=== PATIENT | female | born 1960 | race Caucasian/White ===

== ENCOUNTER → 2016-11-13 | Outpatient (CLI) | payer OTHER, MEDICARE ==
[~2016-11-13] MED LIST: ALENDRONATE SOD70 MG PO; AMBIEN10 M1 PO; ASPIRIN CHEWABL81 MG PO; ATIVAN0.5 MG PO; COUMADIN5 M2 PO; Carafate1 GM PO; DOXYCYCLINE HY100 M3 PO; ERYTHROMYCIN OPH1 GM OPH; ETODOLAC400 MG PO; GABAPENTIN300 MG PO; GABAPENTIN600 MG PO; K-Dur 20MEQ20 MEQ PO; KEFLEX500 MG PO; LASIX20 MG PO; LOPRESSOR50 M1 PO; LORAZEPAM1 MG PO; Lopressor25 MG PO; MOBIC15 MG PO; MOTRIN800 MG PO; NAPROSYN500 MG PO; NEURONTIN300 MG PO; NKHM; PACERONE100 MG PO; PAROXETINE HCL20 MG PO; PEPTIC REL262 MG/15 PO; PROTONIX40 MG PO; SEROQUEL25 MG PO; TYLENOL W/CODEI1 TA2 PO; VICODIN 5/500 505 MG PO; ZANAFLEX4 MG PO; ZOFRAN ODT4 MG PO
[2016-11-13 18:56] LABS: INTERNATIONAL NORM RATIO 1.2 (2.0-3.5); PROTHROMBIN TIME 12.6 SECONDS (9.0-12.4)
== END | disposition home or self-care (01) ==
LOC: LAB 11-12 14:25
DX: I35.0 Nonrheumatic aortic (valve) stenosis (principal); I48.91 Unspecified atrial fibrillation

== ENCOUNTER → 2016-12-05 | Outpatient (CLI) | payer OTHER, MEDICARE | END | disposition home or self-care (01) | LOC: RAD 16:47 | DX: M79.645 Pain in left finger(s) (principal) ==

== ENCOUNTER → 2016-12-06 | Outpatient (CLI) | payer OTHER, MEDICARE ==
[2016-12-06 11:38] LABS: INTERNATIONAL NORM RATIO 2.1 (2.0-3.5); PROTHROMBIN TIME 23.3 SECONDS (9.0-12.4)
== END | disposition home or self-care (01) ==
LOC: LAB 02:12
PROVIDERS: Internal Medicine Cardiovascular Disease
DX: I48.91 Unspecified atrial fibrillation (principal); I35.0 Nonrheumatic aortic (valve) stenosis

== ENCOUNTER → 2017-02-14 | Outpatient (CLI) | payer OTHER, MEDICARE ==
[2017-02-14 12:39] LABS: INTERNATIONAL NORM RATIO 1.7 (2.0-3.5); PROTHROMBIN TIME 18.7 SECONDS (9.0-12.4)
== END | disposition home or self-care (01) ==
LOC: LAB 11:36
DX: I35.0 Nonrheumatic aortic (valve) stenosis (principal); I48.91 Unspecified atrial fibrillation

== ENCOUNTER → 2017-04-09 | Outpatient (CLI) | payer OTHER, MEDICARE ==
[2017-04-09 16:02] LABS: INTERNATIONAL NORM RATIO 1.5 (2.0-3.5); PROTHROMBIN TIME 16.1 SECONDS (9.0-12.4)
== END | disposition home or self-care (01) ==
LOC: LAB 14:56
DX: I48.91 Unspecified atrial fibrillation (principal); I35.0 Nonrheumatic aortic (valve) stenosis

== ENCOUNTER → 2017-05-28 | Outpatient (CLI) | payer OTHER, MEDICARE ==
[2017-05-28 13:22] LABS: PROTHROMBIN TIME 68.3 SECONDS (9.0-12.4)
[2017-05-28 13:26] LABS: INTERNATIONAL NORM RATIO 5.8 (2.0-3.5)
== END | disposition home or self-care (01) ==
LOC: LAB 12:12
PROVIDERS: Internal Medicine Cardiovascular Disease
DX: I35.0 Nonrheumatic aortic (valve) stenosis (principal); Z79.01 Long term (current) use of anticoagulants

== ENCOUNTER → 2017-06-16 | Outpatient (CLI) | payer OTHER, MEDICARE ==
[2017-06-16 18:17] LABS: INTERNATIONAL NORM RATIO 2.2 (2.0-3.5); PROTHROMBIN TIME 24.6 SECONDS (9.0-12.4)
== END | disposition home or self-care (01) ==
LOC: LAB 17:20
PROVIDERS: Internal Medicine Cardiovascular Disease
DX: I35.0 Nonrheumatic aortic (valve) stenosis (principal); Z79.01 Long term (current) use of anticoagulants

== ENCOUNTER → 2017-07-16 | Outpatient (CLI) | payer OTHER, MEDICARE ==
[2017-07-16 08:57] LABS: INTERNATIONAL NORM RATIO 2.1 (2.0-3.5)
== END | disposition home or self-care (01) ==
LOC: LAB 07:58
PROVIDERS: Internal Medicine Cardiovascular Disease
DX: I35.0 Nonrheumatic aortic (valve) stenosis (principal); Z79.01 Long term (current) use of anticoagulants

== ENCOUNTER → 2017-10-07 | Outpatient (CLI) | payer OTHER, MEDICARE ==
[2017-10-07 11:37] LABS: INTERNATIONAL NORM RATIO 3.2 (2.0-3.5)
== END | disposition home or self-care (01) ==
LOC: LAB 10:51
PROVIDERS: Internal Medicine Cardiovascular Disease
DX: I35.0 Nonrheumatic aortic (valve) stenosis (principal); Z79.01 Long term (current) use of anticoagulants

== ENCOUNTER 2017-10-27 11:07 | Inpatient (IN) | payer OTHER, MEDICARE ==
[~2017-10-27] VITALS: Ht 162.5 cm; Wt 92.3 kg
--- NOTE | ~2017-10-27 | EKG ---
[place], [place] ELECTROCARDIOGRAM REPORT NAME: ROMMEL CLAROS UNIT #: [id number] ROOM: 406 DOCTOR: MIREYA GALE [facility],[place] BIRTHDATE: [birth year] DOS: 10/27/2017 TIME: 17:33 CONCLUSION: 1. Sinus rhythm. 2. Left axis. 3. Left anterior hemiblock, nonspecific ST changes. [place] GOMES MD CM:EKGRPT:ELECTROCARDIOGRAM REPORT [id number] [place] GOMES MD [facility]
--- NOTE | ~2017-10-27 | CON ---
[place], [place] REPORT OF CONSULTATION [id number] UNIT #: [id number] ROOM: 406 DOCTOR: MIREYA GALE [facility],[place] BIRTHDATE: [birth year] DOS: 10/28/2017 CARDIOLOGY CONSULTATION HISTORY OF PRESENT ILLNESS: The patient came in with a history of preconscious, no fatigue and tiredness. The patient had history of near syncope, history of hypertension, and paroxysmal atrial fibrillation. At present, the patient has sinus. The patient has aortic valve replacement in 09/2016. The patient has a history of cervical cancer and anxiety. Quit smoking several years ago. The patient has coronary artery disease and initial enzymes are unremarkable. Hemoglobin is 11.8 and creatinine is 1.1. The patient is on amiodarone 100 mg daily to keep in sinus rhythm, baby aspirin, metoprolol succinate 25 mg twice a day, and warfarin therapy for paroxysmal atrial fibrillation and also aortic valve replacement. PHYSICAL EXAMINATION: VITAL SIGNS: Stable. GENERAL: Alert, not in any acute distress. NECK: No jugular venous distention. No carotid bruits. SKIN: Warm and dry, not diaphoretic. Color is good, not diaphoretic. No cyanosis. HEART: S1, S2 regular. No gallops. LUNGS: No rales heard. ABDOMEN: Soft. RECTAL, GENITAL, AND BREAST EXAM: Deferred unrelated. PLAN: The patient will undergo Lexiscan Cardiolite evaluated for ischemic heart disease. If it is abnormal, we may consider further evaluation. If not, we will optimize the medical therapy. EKG, no acute changes noted. Myocardial perfusion scan is pending. Thank you very much for asking me to see the patient. I will follow the patient. [place] GOMES MD CM:CONSTR:REPORT OF CONSULTATION 0650 10/28/17 0848 interface
--- NOTE | ~2017-10-27 | ST ---
[place], [place] EXERCISE STRESS TEST REPORT [id number] UNIT #: [id number] ROOM: 406 DOCTOR: MIREYA GALE [facility],[place] BIRTHDATE: [birth year] DOS: 10/28/2017 The patient received Lexiscan 0.4 mg over 10 seconds. Heart rate is 83, no ischemic changes in EKG. The patient is not feeling well because of the shortness of breath and developed some dizziness, but blood pressure is stable and blood pressure is 138/76. Myocardial perfusion scan to follow. [place] GOMES MD CM:STRESS:EXERCISE STRESS TEST REPORT [id number] [place] GOMES MD [facility]
--- NOTE | ~2017-10-27 | EKG ---
[place], [place] ELECTROCARDIOGRAM REPORT NAME: ROMMEL CLAROS UNIT #: [id number] ROOM: 406 DOCTOR: MIREYA GALE [facility],[place] BIRTHDATE: [birth year] DOS: 10/27/2017 TRACING TIME: 11:19 CONCLUSION: 1. Sinus rhythm. 2. Left anterior hemiblock, nonspecific ST changes. [place] GOMES MD CM:EKGRPT:ELECTROCARDIOGRAM REPORT [id number] [place] GOMES MD [facility]
--- NOTE | ~2017-10-27 | ST ---
[place], [place] EXERCISE STRESS TEST REPORT NAME: [id number] UNIT #: [id number] ROOM: 406 DOCTOR: MIREYA GALE [facility],[place] BIRTHDATE: [birth year] DOS: 10/28/2017 LEXISCAN WITH CARDIOLITE The patient received Lexiscan 0.4 mg over 10 seconds and systolic ejection fraction is normal, greater than 70%. Isotope was injected and also injected the Lexiscan 0.4 mg over 10 seconds prior to this. There is evidence of abdominal perfusion and ____ is normal. Systolic ejection fraction of left heart is greater than 70%. No transient ischemic dilatation are noted. SUMMARY: ____. There is evidence of reversible ischemia involving and since there is reversible ischemia in the anterior apical segment of the lateral wall, may consider further evaluation ____ underlying coronary artery disease. [place] GOMES MD CM:STRESS:EXERCISE STRESS TEST REPORT [id number] [place] GOMES MD [facility]
--- NOTE | ~2017-10-27 | EKG ---
[place], [place] ELECTROCARDIOGRAM REPORT NAME: ROMMEL CLAROS UNIT #: [id number] ROOM: 406 DOCTOR: MIREYA GALE [facility],[place] BIRTHDATE: [birth year] DOS: 10/27/2017 TRACING TIME: 15:11 CONCLUSION: 1. Sinus rhythm. 2. Left anterior hemiblock, nonspecific ST changes. [place] GOMES MD CM:EKGRPT:ELECTROCARDIOGRAM REPORT [id number] [place] GOMES MD [facility]
[2017-10-27 11:22] VITALS: BP 159/90
[2017-10-27] MEDS ORDERED: WARFARIN SOD5 MG PO ×2 (11:30→11:31)
[2017-10-27] MEDS ORDERED: CETIRIZINE10 MG PO (11:32)
[2017-10-27] MEDS ORDERED: AMITRIPTYLINE10 MG PO (11:33)
[2017-10-27 11:34] VITALS: BP 158/88; BP 159/90
[2017-10-27 11:40] LABS: BASO % 0.4 % (0.0-1.0); EOS # 0.1 10*3/uL (0.0-0.4); EOS % 1.6 % (1.0-4.0); HEMATOCRIT 36.3 % (37.0-47.0); HEMOGLOBIN 11.8 g/dl (12.0-16.0); LYMPH # 1.5 10*3/uL (1.3-4.4); LYMPH % 27.6 % (27.0-41.0); MEAN CELL VOLUME 89.2 fl (81.0-99.0); MEAN CORPUSCULAR HGB CONC 32.5 g/dl (33.0-37.0); MEAN PLATELET VOLUME 10.4 fl (9.6-12.3); MONO # 0.5 10*3/uL (0.1-1.0); MONO % 8.8 % (3.0-9.0); NEUT # 3.4 10*3/uL (2.3-7.9); NEUT % 61.4 % (47.0-73.0); PLATELET COUNT AUTOMATED 160 10*3/uL (130-400); RED BLOOD COUNT 4.07 10*6/uL (4.10-5.10); RED CELL DISTRI WIDTH 12.4 % (0-14.5); WHITE BLOOD COUNT 5.6 10*3/uL (4.8-10.8)
[2017-10-27 11:49] LABS: ACT PARTIAL THROMBO TIME 40.5 SECONDS (20.8-31.5); INTERNATIONAL NORM RATIO 2.6 (2.0-3.5)
[2017-10-27 11:57] LABS: ALBUMIN 3.2 gm/dl (3.1-4.5); ALKALINE PHOSPHATASE 94 U/L (45-117); BUN 13 mg/dl (7-24); CHLORIDE 106 mmol/L (98-107); CREATININE 1.15 mg/dL (0.55-1.02); SGOT/AST 29 IU/L (3-35); SGPT/ALT 29 U/L (12-78); SODIUM 141 mmol/L (136-145); TOTAL PROTEIN 7.4 gm/dL (6.4-8.2); TROPONIN I < 0.015 ng/ml (<0.045)
[2017-10-27 12:11] VITALS: BP 131/68
[2017-10-27] MEDS ORDERED: COUMADIN7.5 M1 PO (12:40)
[2017-10-27] MEDS ORDERED: BUPROPION HYDR100 M1 PO (12:41)
[2017-10-27] MEDS ORDERED: METOPROLOL SUCC50 M1 PO (12:42)
[2017-10-27 13:00] VITALS: BP 163/71
[2017-10-27 16:00] VITALS: BP 140/70
[2017-10-27 20:00] VITALS: BP 99/60
[2017-10-28] VITALS: BP 111/59
[2017-10-28 06:54] LABS: BASO % 0.5 % (0.0-1.0); EOS # 0.1 10*3/uL (0.0-0.4); EOS % 1.8 % (1.0-4.0); HEMATOCRIT 35.4 % (37.0-47.0); HEMOGLOBIN 11.5 g/dl (12.0-16.0); LYMPH # 1.5 10*3/uL (1.3-4.4); LYMPH % 35.6 % (27.0-41.0); MEAN CELL VOLUME 92.2 fl (81.0-99.0); MEAN CORPUSCULAR HGB 29.9 pg (27.0-31.0); MEAN CORPUSCULAR HGB CONC 32.5 g/dl (33.0-37.0); MEAN PLATELET VOLUME 11.1 fl (9.6-12.3); MONO # 0.5 10*3/uL (0.1-1.0); MONO % 11.3 % (3.0-9.0); NEUT # 2.2 10*3/uL (2.3-7.9); NEUT % 50.6 % (47.0-73.0); PLATELET COUNT AUTOMATED 158 10*3/uL (130-400); RED BLOOD COUNT 3.84 10*6/uL (4.10-5.10); RED CELL DISTRI WIDTH 12.6 % (0-14.5); WHITE BLOOD COUNT 4.3 10*3/uL (4.8-10.8)
[2017-10-28 07:15] LABS: ALBUMIN 2.8 gm/dl (3.1-4.5); BUN 15 mg/dl (7-24); CHLORIDE 109 mmol/L (98-107); CHOLESTEROL 165 mg/dL (<200); PHOSPHOROUS 3.5 mg/dL (2.5-4.9); POTASSIUM 5.4 mmol/L (3.5-5.1); SGPT/ALT 30 U/L (12-78); SODIUM 142 mmol/L (136-145); TRIGLYCERIDES 90 mg/dl (<150); VLDL CHOLESTEROL 18 mg/dL (6-40)
[2017-10-28 07:24] LABS: ALKALINE PHOSPHATASE 87 U/L (45-117); FREE T4 1.47 ng/dl (0.76-1.46); HDL CHOLESTEROL 64 mg/dl (40-60); LDL CHOLESTEROL 83 mg/dL (9-159); SGOT/AST 26 IU/L (3-35); TOTAL PROTEIN 6.4 gm/dL (6.4-8.2)
[2017-10-28 08:00] VITALS: BP 140/67
[2017-10-28 08:38] LABS: VITAMIN D, 25-HYDROXY 27.4 ng/mL (30-100)
[2017-10-28 12:00] VITALS: BP 131/91
[2017-10-28 16:00] VITALS: BP 137/63
[2017-10-28 20:00] VITALS: BP 132/59
[2017-10-29] VITALS: BP 113/54
== END 2017-10-29 05:28 | disposition short-term general hospital (02) | DRG 312 ==
LOC: ED 11:07 → EDHOLD 11:32 → 4E 11:32
PROVIDERS: Emergency Medicine; Internal Medicine; ADMIT Emergency Medicine
PROC: 4A02XM4 Measurement of Cardiac Total Activity, External Approach (ICD-10-PCS; principal; 2017-10-28)
PROC: 3E073KZ Introduction of Other Diagnostic Substance into Coronary Artery, Percutaneous Approach (ICD-10-PCS; principal; 2017-10-28)
DX: R55 Syncope and collapse (principal); N17.0 Acute kidney failure with tubular necrosis; D68.9 Coagulation defect, unspecified; E44.0 Moderate protein-calorie malnutrition; E87.5 Hyperkalemia; G62.9 Polyneuropathy, unspecified; I48.0 Paroxysmal atrial fibrillation; R07.9 Chest pain, unspecified; D64.9 Anemia, unspecified; R42 Dizziness and giddiness; G89.29 Other chronic pain; R26.81 Unsteadiness on feet; R00.1 Bradycardia, unspecified; M54.5 Low back pain; I10 Essential (primary) hypertension; F41.9 Anxiety disorder, unspecified; G47.00 Insomnia, unspecified; K21.9 Gastro-esophageal reflux disease without esophagitis; M79.7 Fibromyalgia; Z87.891 Personal history of nicotine dependence; Z85.41 Personal history of malignant neoplasm of cervix uteri; Z95.2 Presence of prosthetic heart valve; Z68.34 Body mass index [BMI] 34.0-34.9, adult; Z79.01 Long term (current) use of anticoagulants; Z79.82 Long term (current) use of aspirin; Z79.899 Other long term (current) drug therapy; Z90.49 Acquired absence of other specified parts of digestive tract; Z90.710 Acquired absence of both cervix and uterus; Z82.49 Family history of ischemic heart disease and other diseases of the circulatory system

== ENCOUNTER → 2017-11-21 | Outpatient (CLI) | payer OTHER, MEDICARE ==
[~2017-11-21] MED LIST changes: +AMITRIPTYLINE10 MG PO; +BUPROPION HYDR100 M1 PO; +CETIRIZINE10 MG PO; +COUMADIN7.5 M1 PO; +METOPROLOL SUCC50 M1 PO; +WARFARIN SOD5 MG PO
[2017-11-21 09:42] LABS: INTERNATIONAL NORM RATIO 1.2 (2.0-3.5)
== END | disposition home or self-care (01) ==
LOC: LAB 08:43
PROVIDERS: Internal Medicine Cardiovascular Disease
DX: I35.0 Nonrheumatic aortic (valve) stenosis (principal); Z79.01 Long term (current) use of anticoagulants

== ENCOUNTER 2017-12-20 11:57 | Inpatient (IN) | payer OTHER, MEDICARE ==
[~2017-12-20] VITALS: Ht 165.1 cm; Wt 88.1 kg
[2017-12-20 12:02] VITALS: BP 162/81
[2017-12-20 12:25] LABS: BASO % 0.3 % (0.0-1.0); EOS % 0.2 % (1.0-4.0); HEMATOCRIT 41.4 % (37.0-47.0); HEMOGLOBIN 13.8 g/dl (12.0-16.0); LYMPH % 17.6 % (27.0-41.0); MEAN CELL VOLUME 86.6 fl (81.0-99.0); MEAN CORPUSCULAR HGB 28.9 pg (27.0-31.0); MEAN CORPUSCULAR HGB CONC 33.3 g/dl (33.0-37.0); MEAN PLATELET VOLUME 10.7 fl (9.6-12.3); MONO # 0.6 10*3/uL (0.1-1.0); MONO % 10.3 % (3.0-9.0); NEUT # 4.2 10*3/uL (2.3-7.9); NEUT % 71.3 % (47.0-73.0); PLATELET COUNT AUTOMATED 169 10*3/uL (130-400); RED BLOOD COUNT 4.78 10*6/uL (4.10-5.10); RED CELL DISTRI WIDTH 11.6 % (0-14.5); WHITE BLOOD COUNT 5.8 10*3/uL (4.8-10.8)
[2017-12-20 12:38] LABS: INTERNATIONAL NORM RATIO 1.5 (2.0-3.5)
[2017-12-20 12:46] LABS: ALBUMIN 3.5 gm/dl (3.1-4.5); CREATININE 1.13 mg/dL (0.55-1.02); POTASSIUM 3.5 mmol/L (3.5-5.1); TOTAL PROTEIN 7.9 gm/dL (6.4-8.2)
[2017-12-20 13:24] VITALS: BP 168/82
[2017-12-20 13:55] VITALS: BP 145/61
[2017-12-20] MEDS ORDERED: ZYRTEC10 MG PO (14:03)
[2017-12-20] MEDS ORDERED: AMBIEN5 MG PO (14:03)
[2017-12-20 16:00] VITALS: BP 145/63
[2017-12-20 20:00] VITALS: BP 143/63
[2017-12-21] VITALS: BP 113/50
[2017-12-21 06:11] LABS: BASO % 0.2 % (0.0-1.0); EOS # 0.1 10*3/uL (0.0-0.4); LYMPH # 1.4 10*3/uL (1.3-4.4); LYMPH % 30.4 % (27.0-41.0); MEAN CELL VOLUME 88.1 fl (81.0-99.0); MEAN CORPUSCULAR HGB 29.4 pg (27.0-31.0); MEAN CORPUSCULAR HGB CONC 33.3 g/dl (33.0-37.0); MEAN PLATELET VOLUME 11.1 fl (9.6-12.3); MONO # 0.6 10*3/uL (0.1-1.0); MONO % 13.5 % (3.0-9.0); NEUT # 2.5 10*3/uL (2.3-7.9); NEUT % 52.9 % (47.0-73.0); PLATELET COUNT AUTOMATED 134 10*3/uL (130-400); RED BLOOD COUNT 3.95 10*6/uL (4.10-5.10); RED CELL DISTRI WIDTH 11.8 % (0-14.5); WHITE BLOOD COUNT 4.7 10*3/uL (4.8-10.8)
[2017-12-21 06:19] LABS: HEMATOCRIT 34.8 % (37.0-47.0); HEMOGLOBIN 11.6 g/dl (12.0-16.0)
[2017-12-21 06:23] LABS: INTERNATIONAL NORM RATIO 1.3 (2.0-3.5)
[2017-12-21 06:26] LABS: ALBUMIN 2.8 gm/dl (3.1-4.5); ALKALINE PHOSPHATASE 79 U/L (45-117); BUN 12 mg/dl (7-24); CHLORIDE 110 mmol/L (98-107); CREATININE 0.88 mg/dL (0.55-1.02); PHOSPHOROUS 2.4 mg/dL (2.5-4.9); POTASSIUM 3.4 mmol/L (3.5-5.1); SGOT/AST 35 IU/L (3-35); SGPT/ALT 31 U/L (12-78); SODIUM 143 mmol/L (136-145); TOTAL PROTEIN 6.4 gm/dL (6.4-8.2)
[2017-12-21 08:00] VITALS: BP 132/58
[2017-12-21 12:00] VITALS: BP 130/58
[2017-12-21 16:00] VITALS: BP 138/68
[2017-12-21 20:00] VITALS: BP 114/54
[2017-12-22] VITALS: BP 106/50
[2017-12-22 06:57] LABS: HEMATOCRIT 34.7 % (37.0-47.0); HEMOGLOBIN 11.2 g/dl (12.0-16.0); MEAN CELL VOLUME 88.7 fl (81.0-99.0); MEAN CORPUSCULAR HGB 28.6 pg (27.0-31.0); MEAN CORPUSCULAR HGB CONC 32.3 g/dl (33.0-37.0); MEAN PLATELET VOLUME 11.3 fl (9.6-12.3); PLATELET COUNT AUTOMATED 139 10*3/uL (130-400); RED BLOOD COUNT 3.91 10*6/uL (4.10-5.10); RED CELL DISTRI WIDTH 11.9 % (0-14.5); WHITE BLOOD COUNT 5.1 10*3/uL (4.8-10.8)
[2017-12-22 06:58] LABS: BUN 9 mg/dl (7-24); CHLORIDE 110 mmol/L (98-107); CREATININE 0.97 mg/dL (0.55-1.02); PHOSPHOROUS 2.5 mg/dL (2.5-4.9); SODIUM 143 mmol/L (136-145)
[2017-12-22 07:12] LABS: POTASSIUM 4.4 mmol/L (3.5-5.1)
[2017-12-22 07:14] LABS: INTERNATIONAL NORM RATIO 1.3 (2.0-3.5)
[2017-12-22 07:33] LABS: BASOPHILS 1 % (0-1); PLATELET SUFFICIENCY NORMAL (NORMAL); TOTAL CELLS COUNTED 100 #CELLS
[2017-12-22 08:00] VITALS: BP 110/58
[2017-12-22 12:00] VITALS: BP 120/64
[2017-12-22 16:00] VITALS: BP 124/74
[2017-12-22 20:00] VITALS: BP 137/69
[2017-12-23] VITALS: BP 132/61
[2017-12-23 06:41] LABS: BUN 9 mg/dl (7-24); CHLORIDE 107 mmol/L (98-107); CREATININE 0.93 mg/dL (0.55-1.02); PHOSPHOROUS 3.2 mg/dL (2.5-4.9); POTASSIUM 4.5 mmol/L (3.5-5.1); SODIUM 142 mmol/L (136-145)
[2017-12-23 06:53] LABS: BASO % 0.4 % (0.0-1.0); EOS # 0.2 10*3/uL (0.0-0.4); EOS % 3.3 % (1.0-4.0); HEMATOCRIT 35.2 % (37.0-47.0); HEMOGLOBIN 11.3 g/dl (12.0-16.0); LYMPH % 36.2 % (27.0-41.0); MEAN CELL VOLUME 89.3 fl (81.0-99.0); MEAN CORPUSCULAR HGB 28.7 pg (27.0-31.0); MEAN CORPUSCULAR HGB CONC 32.1 g/dl (33.0-37.0); MEAN PLATELET VOLUME 11.9 fl (9.6-12.3); MONO # 0.6 10*3/uL (0.1-1.0); MONO % 10.2 % (3.0-9.0); NEUT # 2.7 10*3/uL (2.3-7.9); NEUT % 49.7 % (47.0-73.0); NUCLEATED RED BLOOD CELL 0.6 % (0.0-0.0); PLATELET COUNT AUTOMATED 138 10*3/uL (130-400); RED BLOOD COUNT 3.94 10*6/uL (4.10-5.10); RED CELL DISTRI WIDTH 11.9 % (0-14.5); WHITE BLOOD COUNT 5.4 10*3/uL (4.8-10.8)
[2017-12-23 07:06] LABS: INTERNATIONAL NORM RATIO 1.6 (2.0-3.5)
[2017-12-23 08:00] VITALS: BP 114/64
[2017-12-23 12:00] VITALS: BP 114/63
[2017-12-23 16:00] VITALS: BP 119/59
[2017-12-23 20:00] VITALS: BP 125/61
[2017-12-24] VITALS: BP 116/50
[2017-12-24 07:17] LABS: BASO % 0.3 % (0.0-1.0); EOS # 0.2 10*3/uL (0.0-0.4); EOS % 2.5 % (1.0-4.0); HEMOGLOBIN 11.7 g/dl (12.0-16.0); LYMPH # 1.7 10*3/uL (1.3-4.4); LYMPH % 28.3 % (27.0-41.0); MEAN CELL VOLUME 87.7 fl (81.0-99.0); MEAN CORPUSCULAR HGB 29.3 pg (27.0-31.0); MEAN CORPUSCULAR HGB CONC 33.4 g/dl (33.0-37.0); MEAN PLATELET VOLUME 11.3 fl (9.6-12.3); MONO # 0.6 10*3/uL (0.1-1.0); MONO % 10.7 % (3.0-9.0); NEUT # 3.5 10*3/uL (2.3-7.9); PLATELET COUNT AUTOMATED 132 10*3/uL (130-400); RED BLOOD COUNT 3.99 10*6/uL (4.10-5.10); RED CELL DISTRI WIDTH 11.7 % (0-14.5)
[2017-12-24 07:40] LABS: CHLORIDE 102 mmol/L (98-107); POTASSIUM 4.4 mmol/L (3.5-5.1); SODIUM 140 mmol/L (136-145)
[2017-12-24 07:59] LABS: INTERNATIONAL NORM RATIO 1.8 (2.0-3.5)
[2017-12-24 08:14] LABS: ALBUMIN 2.8 gm/dl (3.1-4.5); ALKALINE PHOSPHATASE 77 U/L (45-117); BUN 13 mg/dl (7-24); CREATININE 0.92 mg/dL (0.55-1.02); SGOT/AST 25 IU/L (3-35); SGPT/ALT 28 U/L (12-78); TOTAL PROTEIN 6.4 gm/dL (6.4-8.2)
[2017-12-24 08:28] VITALS: BP 129/66
[2017-12-24] MEDS ORDERED: CIPRO500 MG PO (11:34)
[2017-12-24] MEDS ORDERED: WARFARIN2 MG PO (11:34)
[2017-12-24] MEDS ORDERED: Zofran4 MG SL (13:38)
== END 2017-12-24 13:20 | disposition home or self-care (01) | DRG 391 ==
LOC: ED 11:57 → 5E 13:39
PROVIDERS: Family Medicine; Internal Medicine; Internal Medicine Nephrology; Nurse Practitioner Family
DX: K52.9 Noninfective gastroenteritis and colitis, unspecified (principal); N17.0 Acute kidney failure with tubular necrosis; D47.2 Monoclonal gammopathy; I48.0 Paroxysmal atrial fibrillation; D72.821 Monocytosis (symptomatic); G62.9 Polyneuropathy, unspecified; E86.0 Dehydration; K21.9 Gastro-esophageal reflux disease without esophagitis; M79.7 Fibromyalgia; M54.9 Dorsalgia, unspecified; G89.29 Other chronic pain; G47.00 Insomnia, unspecified; E66.09 Other obesity due to excess calories; N18.3 Chronic kidney disease, stage 3 (moderate); Z51.81 Encounter for therapeutic drug level monitoring; Z79.01 Long term (current) use of anticoagulants; Z68.32 Body mass index [BMI] 32.0-32.9, adult; Z95.2 Presence of prosthetic heart valve; Z79.82 Long term (current) use of aspirin; Z79.899 Other long term (current) drug therapy

== ENCOUNTER → 2018-02-27 | Outpatient (CLI) | payer OTHER, MEDICARE ==
[~2018-02-27] MED LIST changes: +AMBIEN5 MG PO; +CIPRO500 MG PO; +WARFARIN2 MG PO; +ZYRTEC10 MG PO; +Zofran4 MG SL
[2018-02-27 15:07] LABS: BASO % 0.4 % (0.0-1.0); EOS # 0.1 10*3/uL (0.0-0.4); EOS % 0.7 % (1.0-4.0); HEMATOCRIT 41.2 % (37.0-47.0); LYMPH # 1.6 10*3/uL (1.3-4.4); LYMPH % 23.8 % (27.0-41.0); MEAN CELL VOLUME 89.6 fl (81.0-99.0); MEAN CORPUSCULAR HGB 28.3 pg (27.0-31.0); MEAN CORPUSCULAR HGB CONC 31.6 g/dl (33.0-37.0); MEAN PLATELET VOLUME 10.3 fl (9.6-12.3); MONO # 0.4 10*3/uL (0.1-1.0); MONO % 6.3 % (3.0-9.0); NEUT # 4.7 10*3/uL (2.3-7.9); NEUT % 68.7 % (47.0-73.0); PLATELET COUNT AUTOMATED 201 10*3/uL (130-400); RED CELL DISTRI WIDTH 12.5 % (0-14.5); WHITE BLOOD COUNT 6.8 10*3/uL (4.8-10.8)
[2018-02-27 15:30] LABS: INTERNATIONAL NORM RATIO 2.7 (2.0-3.5)
[2018-02-27 15:35] LABS: ALBUMIN 3.8 gm/dl (3.1-4.5); POTASSIUM 3.7 mmol/L (3.5-5.1)
[2018-02-27 15:39] LABS: CREATININE 1.15 mg/dL (0.55-1.02); TOTAL PROTEIN 8.1 gm/dL (6.4-8.2)
[2018-02-28 04:17] LABS: TOTAL PROTEIN, SERUM 7.5 g/dL (6.0-8.5)
[2018-02-28 13:08] LABS: FREE KAPPA LIGHT CHAINS 156.3 mg/L (3.3-19.4); FREE LAMBDA LIGHT CHAINS 20.7 mg/L (5.7-26.3); KAPPA/LAMBDA RATIO 7.55 (0.26-1.65)
[2018-03-02 16:10] LABS: ALBUMIN 3.8 g/dL (2.9-4.4); ALPHA-1-GLOBULIN 0.2 g/dL (0.0-0.4); ALPHA-2-GLOBULIN 0.7 g/dL (0.4-1.0); BETA GLOBULIN 0.9 g/dL (0.7-1.3); GAMMA GLOBULIN 1.8 g/dL (0.4-1.8); GLOBULIN, TOTAL 3.7 g/dL (2.2-3.9); M-SPIKE 1.1 g/dL (Not Observed)
== END | disposition home or self-care (01) ==
LOC: LAB 14:05
PROVIDERS: Internal Medicine Cardiovascular Disease; Internal Medicine Hematology & Oncology
DX: D47.2 Monoclonal gammopathy (principal); I35.0 Nonrheumatic aortic (valve) stenosis; Z79.01 Long term (current) use of anticoagulants

== ENCOUNTER → 2018-04-03 | Outpatient (CLI) | payer OTHER, MEDICARE ==
[2018-04-03 10:57] LABS: INTERNATIONAL NORM RATIO 3.8 (2.0-3.5)
== END | disposition home or self-care (01) ==
LOC: LAB 09:54
PROVIDERS: Internal Medicine Cardiovascular Disease
DX: I35.0 Nonrheumatic aortic (valve) stenosis (principal); Z79.01 Long term (current) use of anticoagulants

== ENCOUNTER → 2018-05-15 | Outpatient (CLI) | payer OTHER, MEDICARE ==
[~2018-05-15] MED LIST changes: +LEVOFLOXACIN500 MG PO; +MEDI-MECLIZINE25 MG PO; +ZOFRAN ODT4 MG SL
[2018-05-15 12:44] LABS: BASO % 0.3 % (0.0-1.0); EOS % 0.1 % (1.0-4.0); HEMATOCRIT 40.8 % (37.0-47.0); HEMOGLOBIN 13.2 g/dl (12.0-16.0); LYMPH # 1.4 10*3/uL (1.3-4.4); LYMPH % 16.2 % (27.0-41.0); MEAN CELL VOLUME 89.9 fl (81.0-99.0); MEAN CORPUSCULAR HGB 29.1 pg (27.0-31.0); MEAN CORPUSCULAR HGB CONC 32.4 g/dl (33.0-37.0); MEAN PLATELET VOLUME 10.6 fl (9.6-12.3); MONO # 0.5 10*3/uL (0.1-1.0); MONO % 6.1 % (3.0-9.0); NEUT # 6.7 10*3/uL (2.3-7.9); NEUT % 77.1 % (47.0-73.0); PLATELET COUNT AUTOMATED 214 10*3/uL (130-400); RED BLOOD COUNT 4.54 10*6/uL (4.10-5.10); RED CELL DISTRI WIDTH 12.2 % (0-14.5); WHITE BLOOD COUNT 8.7 10*3/uL (4.8-10.8)
[2018-05-15 13:18] LABS: BUN 17 mg/dl (7-24); CHLORIDE 106 mmol/L (98-107); CREATININE 1.12 mg/dL (0.55-1.02); POTASSIUM 4.3 mmol/L (3.5-5.1); SODIUM 141 mmol/L (136-145)
[2018-05-15 13:35] LABS: INTERNATIONAL NORM RATIO 2.4 (2.0-3.5)
== END | disposition home or self-care (01) ==
LOC: LAB 12:26
PROVIDERS: Internal Medicine Cardiovascular Disease
DX: I35.0 Nonrheumatic aortic (valve) stenosis (principal); R00.2 Palpitations; Z79.01 Long term (current) use of anticoagulants

== ENCOUNTER 2018-05-16 10:00 | Emergency (ER) | payer OTHER, MEDICARE ==
[~2018-05-16] VITALS: Ht 162.5 cm; Wt 83.9 kg
[~2018-05-16 10:00] MED LIST changes: -LEVOFLOXACIN500 MG PO; -MEDI-MECLIZINE25 MG PO; -ZOFRAN ODT4 MG SL
[2018-05-16 10:34] LABS: BILIRUBIN 2+ (NEGATIVE); BLOOD TRACE-INTACT (NEGATIVE); CLARITY CLOUDY (CLEAR); COLOR YELLOW (YELLOW); GLUCOSE NEGATIVE (NEGATIVE); KETONE TRACE (NEGATIVE); LEUKO ESTERASE TRACE (NEGATIVE); NITRITE POSITIVE (NEGATIVE); PH 5.5 (5.0-9.0); SPECIFIC GRAVITY >= 1.030 (1.005-1.030); UROBILINOGEN 0.2 E.U./dl (0.2-1.0)
[2018-05-16] MEDS ORDERED: LEVOFLOXACIN500 MG PO (11:55)
[2018-05-16] MEDS ORDERED: MEDI-MECLIZINE25 MG PO (11:58)
[2018-05-16] MEDS ORDERED: ZOFRAN ODT4 MG SL (11:58)
== END 2018-05-16 12:08 | disposition home or self-care (01) ==
LOC: ED 10:00
PROVIDERS: Emergency Medicine
DX: N39.0 Urinary tract infection, site not specified (principal); R51 Headache; G89.29 Other chronic pain; K21.9 Gastro-esophageal reflux disease without esophagitis; N18.3 Chronic kidney disease, stage 3 (moderate); I48.91 Unspecified atrial fibrillation; Z79.01 Long term (current) use of anticoagulants; Z79.82 Long term (current) use of aspirin; Z79.899 Other long term (current) drug therapy; Z90.49 Acquired absence of other specified parts of digestive tract; Z90.710 Acquired absence of both cervix and uterus; Z98.890 Other specified postprocedural states; Z87.891 Personal history of nicotine dependence

== ENCOUNTER → 2018-07-10 | Outpatient (CLI) | payer OTHER, MEDICARE ==
[~2018-07-10] MED LIST changes: +LEVOFLOXACIN500 MG PO; +MEDI-MECLIZINE25 MG PO; +ZOFRAN ODT4 MG SL
[2018-07-10 12:15] LABS: INTERNATIONAL NORM RATIO 2.3 (2.0-3.5)
== END | disposition home or self-care (01) ==
LOC: LAB 10:13
PROVIDERS: Internal Medicine Cardiovascular Disease
DX: Z51.81 Encounter for therapeutic drug level monitoring (principal); Z79.01 Long term (current) use of anticoagulants

== ENCOUNTER → 2018-08-27 | Outpatient (CLI) | payer OTHER, MEDICARE ==
[2018-08-27 17:42] LABS: INTERNATIONAL NORM RATIO 2.4 (2.0-3.5)
== END | disposition home or self-care (01) ==
LOC: LAB 17:13
PROVIDERS: Internal Medicine Cardiovascular Disease
DX: Z79.01 Long term (current) use of anticoagulants (principal)

== ENCOUNTER → 2018-09-28 | Outpatient (CLI) | payer OTHER, MEDICARE ==
[2018-09-28 10:56] LABS: INTERNATIONAL NORM RATIO 2.1 (2.0-3.5)
== END | disposition home or self-care (01) ==
LOC: LAB 08:06
PROVIDERS: Internal Medicine Cardiovascular Disease
DX: Z79.01 Long term (current) use of anticoagulants (principal)

== ENCOUNTER → 2018-12-29 | Outpatient (CLI) | payer OTHER, MEDICARE ==
[2018-12-29 14:17] LABS: HEMATOCRIT 43.5 % (37.0-47.0); HEMOGLOBIN 13.7 g/dl (12.0-16.0); MEAN CELL VOLUME 91.2 fl (81.0-99.0); MEAN CORPUSCULAR HGB 28.7 pg (27.0-31.0); MEAN CORPUSCULAR HGB CONC 31.5 g/dl (33.0-37.0); MEAN PLATELET VOLUME 10.9 fl (9.6-12.3); RED BLOOD COUNT 4.77 10*6/uL (4.10-5.10); RED CELL DISTRI WIDTH 12.1 % (0-14.5); WHITE BLOOD COUNT 6.6 10*3/uL (4.8-10.8)
[2018-12-29 14:38] LABS: INTERNATIONAL NORM RATIO 3.9 (2.0-3.5)
[2018-12-29 14:44] LABS: ALBUMIN 3.6 gm/dl (3.1-4.5); CREATININE 1.14 mg/dL (0.55-1.02); POTASSIUM 4.3 mmol/L (3.5-5.1); TOTAL PROTEIN 7.8 gm/dL (6.4-8.2)
== END | disposition home or self-care (01) ==
LOC: LAB 13:30
PROVIDERS: Internal Medicine Cardiovascular Disease; Physician Assistant
DX: M79.7 Fibromyalgia (principal); M25.512 Pain in left shoulder; F41.9 Anxiety disorder, unspecified; Z79.01 Long term (current) use of anticoagulants

== ENCOUNTER → 2019-03-24 | Outpatient (CLI) | payer OTHER, MEDICARE ==
[2019-03-24 13:33] LABS: INTERNATIONAL NORM RATIO 2.8 (2.0-3.5)
== END | disposition home or self-care (01) ==
LOC: LAB 03-23 00:12
PROVIDERS: Internal Medicine Cardiovascular Disease
DX: Z79.01 Long term (current) use of anticoagulants (principal)

== ENCOUNTER → 2019-04-09 | Outpatient (CLI) | payer OTHER, MEDICARE ==
[2019-04-09 13:07] LABS: INTERNATIONAL NORM RATIO 1.9 (2.0-3.5)
[2019-04-10 19:05] LABS: FREE KAPPA LIGHT CHAINS 209.3 mg/L (3.3-19.4); FREE LAMBDA LIGHT CHAINS 22.6 mg/L (5.7-26.3); KAPPA/LAMBDA RATIO 9.26 (0.26-1.65)
== END | disposition home or self-care (01) ==
LOC: LAB 11:52
PROVIDERS: Internal Medicine Cardiovascular Disease; Internal Medicine Hematology & Oncology
DX: Z79.01 Long term (current) use of anticoagulants (principal); D47.2 Monoclonal gammopathy

== ENCOUNTER → 2019-09-06 | Outpatient (CLI) | payer OTHER, MEDICARE ==
[2019-09-06 15:02] LABS: BASO % 0.6 % (0.0-1.0); EOS # 0.1 10*3/uL (0.0-0.4); EOS % 1.3 % (1.0-4.0); HEMATOCRIT 37.8 % (37.0-47.0); HEMOGLOBIN 12.2 g/dl (12.0-16.0); LYMPH # 1.7 10*3/uL (1.3-4.4); LYMPH % 35.6 % (27.0-41.0); MEAN CELL VOLUME 93.1 fl (81.0-99.0); MEAN CORPUSCULAR HGB CONC 32.3 g/dl (33.0-37.0); MEAN PLATELET VOLUME 10.7 fl (9.6-12.3); MONO # 0.6 10*3/uL (0.1-1.0); MONO % 12.5 % (3.0-9.0); NEUT # 2.3 10*3/uL (2.3-7.9); NEUT % 49.8 % (47.0-73.0); PLATELET COUNT AUTOMATED 150 10*3/uL (130-400); RED BLOOD COUNT 4.06 10*6/uL (4.10-5.10); RED CELL DISTRI WIDTH 11.9 % (0-14.5); WHITE BLOOD COUNT 4.6 10*3/uL (4.8-10.8)
[2019-09-06 15:18] LABS: ALBUMIN 3.2 gm/dl (3.1-4.5); ALKALINE PHOSPHATASE 86 U/L (45-117); BUN 18 mg/dl (7-24); CHLORIDE 109 mmol/L (98-107); CREATININE 1.02 mg/dL (0.55-1.02); POTASSIUM 4.3 mmol/L (3.5-5.1); SGOT/AST 30 IU/L (3-35); SGPT/ALT 30 U/L (12-78); SODIUM 141 mmol/L (136-145); TOTAL PROTEIN 7.6 gm/dL (6.4-8.2)
[2019-09-07 17:07] LABS: A/G RATIO 0.9 (0.7-1.7); ALBUMIN 3.1 g/dL (2.9-4.4); ALPHA-1-GLOBULIN 0.3 g/dL (0.0-0.4); ALPHA-2-GLOBULIN 0.8 g/dL (0.4-1.0); BETA GLOBULIN 0.9 g/dL (0.7-1.3); FREE KAPPA LIGHT CHAINS 193.9 mg/L (3.3-19.4); FREE LAMBDA LIGHT CHAINS 21.8 mg/L (5.7-26.3); GAMMA GLOBULIN 1.8 g/dL (0.4-1.8); GLOBULIN, TOTAL 3.8 g/dL (2.2-3.9); IMMUNOGLOBULIN G, QNT 1981 mg/dL (700-1600); IMMUNOGLOBULIN M, QNT 105 mg/dL (26-217); KAPPA/LAMBDA RATIO 8.89 (0.26-1.65); M-SPIKE 1.2 g/dL (Not Observed); TOTAL PROTEIN, SERUM 6.9 g/dL (6.0-8.5)
== END | disposition home or self-care (01) ==
LOC: LAB 14:21
PROVIDERS: Internal Medicine Hematology & Oncology
DX: D47.2 Monoclonal gammopathy (principal)

== ENCOUNTER → 2019-11-23 | Outpatient (CLI) | payer OTHER, MEDICARE | END | disposition home or self-care (01) | LOC: LAB 11-22 11:07 | PROVIDERS: Internal Medicine Cardiovascular Disease | DX: I48.0 Paroxysmal atrial fibrillation (principal); Z79.01 Long term (current) use of anticoagulants ==

== ENCOUNTER → 2020-01-12 | Outpatient (CLI) | payer OTHER, MEDICARE ==
[2020-01-12 13:04] LABS: BASO % 0.4 % (0.0-1.0); EOS # 0.1 10*3/uL (0.0-0.4); EOS % 0.9 % (1.0-4.0); HEMATOCRIT 42.7 % (37.0-47.0); HEMOGLOBIN 13.8 g/dl (12.0-16.0); LYMPH # 1.6 10*3/uL (1.3-4.4); LYMPH % 22.9 % (27.0-41.0); MEAN CORPUSCULAR HGB 29.4 pg (27.0-31.0); MEAN CORPUSCULAR HGB CONC 32.3 g/dl (33.0-37.0); MEAN PLATELET VOLUME 11.4 fl (9.6-12.3); MONO # 0.6 10*3/uL (0.1-1.0); MONO % 8.7 % (3.0-9.0); NEUT # 4.6 10*3/uL (2.3-7.9); PLATELET COUNT AUTOMATED 172 10*3/uL (130-400); RED BLOOD COUNT 4.69 10*6/uL (4.10-5.10); RED CELL DISTRI WIDTH 12.8 % (0-14.5); WHITE BLOOD COUNT 6.9 10*3/uL (4.8-10.8)
[2020-01-12 13:10] LABS: INTERNATIONAL NORM RATIO 2.2 (2.0-3.5)
[2020-01-12 13:38] LABS: ALBUMIN 3.6 gm/dl (3.1-4.5); ALKALINE PHOSPHATASE 88 U/L (45-117); BUN 16 mg/dl (7-24); CHLORIDE 107 mmol/L (98-107); CREATININE 0.99 mg/dL (0.55-1.02); SGOT/AST 42 IU/L (3-35); SGPT/ALT 43 U/L (12-78); SODIUM 136 mmol/L (136-145); TOTAL PROTEIN 8.5 gm/dL (6.4-8.2)
[2020-01-13 05:08] LABS: TOTAL PROTEIN, SERUM 7.8 g/dL (6.0-8.5)
[2020-01-13 15:04] LABS: A/G RATIO 0.9 (0.7-1.7); ALBUMIN 3.6 g/dL (2.9-4.4); ALPHA-1-GLOBULIN 0.3 g/dL (0.0-0.4); ALPHA-2-GLOBULIN 0.9 g/dL (0.4-1.0); GLOBULIN, TOTAL 4.2 g/dL (2.2-3.9); M-SPIKE 1.5 g/dL (Not Observed)
[2020-01-13 16:06] LABS: FREE KAPPA LIGHT CHAINS 173.3 mg/L (3.3-19.4); FREE LAMBDA LIGHT CHAINS 21.6 mg/L (5.7-26.3); KAPPA/LAMBDA RATIO 8.02 (0.26-1.65)
== END | disposition home or self-care (01) ==
LOC: LAB 12:30
PROVIDERS: Internal Medicine Cardiovascular Disease; Internal Medicine Hematology & Oncology
DX: I48.0 Paroxysmal atrial fibrillation (principal); D47.2 Monoclonal gammopathy; Z79.01 Long term (current) use of anticoagulants

== ENCOUNTER → 2020-05-04 | Outpatient (CLI) | payer OTHER, MEDICARE | END | disposition home or self-care (01) | LOC: CARD 05-01 10:30 | DX: Z01.818 Encounter for other preprocedural examination (principal); I35.0 Nonrheumatic aortic (valve) stenosis; Z95.2 Presence of prosthetic heart valve ==

== ENCOUNTER 2020-07-22 08:50 | Emergency (ER) | payer OTHER, MEDICARE ==
[~2020-07-22] VITALS: Ht 162.5 cm; Wt 81.6 kg
[~2020-07-22 08:50] MED LIST changes: +Coumadin5 MG PO; +METOPROLOL SUCC25 M2 PO; +XARELTO20 M1 PO; +ZANAFLEX4 M1 PO; +ZESTRIL5 MG PO; +ZOFRAN4 MG PO
[2020-07-22 09:26] LABS: BASO % 0.4 % (0.0-1.0); EOS % 0.6 % (1.0-4.0); HEMATOCRIT 40.3 % (37.0-47.0); LYMPH # 1.1 10*3/uL (1.3-4.4); LYMPH % 16.1 % (27.0-41.0); MEAN CELL VOLUME 94.4 fl (81.0-99.0); MEAN CORPUSCULAR HGB 30.4 pg (27.0-31.0); MEAN CORPUSCULAR HGB CONC 32.3 g/dl (33.0-37.0); MEAN PLATELET VOLUME 11.1 fl (9.6-12.3); MONO # 0.5 10*3/uL (0.1-1.0); MONO % 7.1 % (3.0-9.0); NEUT # 5.3 10*3/uL (2.3-7.9); NEUT % 75.5 % (47.0-73.0); PLATELET COUNT AUTOMATED 154 10*3/uL (130-400); RED BLOOD COUNT 4.27 10*6/uL (4.10-5.10); RED CELL DISTRI WIDTH 11.6 % (0-14.5); WHITE BLOOD COUNT 7.1 10*3/uL (4.8-10.8)
[2020-07-22 09:42] LABS: ALBUMIN 3.4 gm/dl (3.1-4.5); CREATININE 1.25 mg/dL (0.55-1.02); POTASSIUM 3.9 mmol/L (3.5-5.1); TOTAL PROTEIN 8.1 gm/dL (6.4-8.2)
[2020-07-22 10:33] LABS: BILIRUBIN NEGATIVE; BLOOD NEGATIVE (NEGATIVE); CLARITY CLEAR (CLEAR); COLOR YELLOW (YELLOW); GLUCOSE NEGATIVE; KETONE NEGATIVE; LEUKO ESTERASE TRACE (NEGATIVE); NITRITE NEGATIVE (NEGATIVE); RBC 0-2 rbc/hpf (0-2)
[2020-07-22] MEDS ORDERED: PRILOSEC20 M1 PO (11:49)
== END 2020-07-22 12:05 | disposition home or self-care (01) ==
LOC: ED 08:50
PROVIDERS: Emergency Medicine
DX: K29.70 Gastritis, unspecified, without bleeding (principal); K21.9 Gastro-esophageal reflux disease without esophagitis; F41.9 Anxiety disorder, unspecified; Z79.899 Other long term (current) drug therapy; Z79.82 Long term (current) use of aspirin; Z90.49 Acquired absence of other specified parts of digestive tract

== ENCOUNTER → 2020-07-31 | Outpatient (CLI) | payer OTHER, MEDICARE ==
[~2020-07-31] MED LIST changes: +PRILOSEC20 M1 PO
== END | disposition home or self-care (01) ==
LOC: CARD 09:30
PROVIDERS: ATTEND Internal Medicine Cardiovascular Disease
DX: I48.0 Paroxysmal atrial fibrillation (principal)

== ENCOUNTER → 2020-08-08 | Outpatient (CLI) | payer OTHER, MEDICARE | END | disposition home or self-care (01) | LOC: MAMMO 15:37 | PROVIDERS: ATTEND Physician Assistant | DX: Z12.31 Encounter for screening mammogram for malignant neoplasm of breast (principal); N64.89 Other specified disorders of breast ==

== ENCOUNTER → 2020-08-24 | Outpatient (CLI) | payer OTHER, MEDICARE ==
[2020-08-24 13:20] LABS: BASO % 0.5 % (0.0-1.0); EOS % 0.4 % (1.0-4.0); HEMATOCRIT 43.1 % (37.0-47.0); LYMPH # 1.6 10*3/uL (1.3-4.4); LYMPH % 21.6 % (27.0-41.0); MEAN CELL VOLUME 92.9 fl (81.0-99.0); MEAN CORPUSCULAR HGB 30.6 pg (27.0-31.0); MEAN CORPUSCULAR HGB CONC 32.9 g/dl (33.0-37.0); MEAN PLATELET VOLUME 11.3 fl (9.6-12.3); MONO # 0.5 10*3/uL (0.1-1.0); MONO % 6.9 % (3.0-9.0); NEUT # 5.3 10*3/uL (2.3-7.9); NEUT % 70.5 % (47.0-73.0); PLATELET COUNT AUTOMATED 203 10*3/uL (130-400); RED BLOOD COUNT 4.64 10*6/uL (4.10-5.10); RED CELL DISTRI WIDTH 11.4 % (0-14.5); WHITE BLOOD COUNT 7.5 10*3/uL (4.8-10.8)
[2020-08-24 13:45] LABS: ALBUMIN 3.7 gm/dl (3.1-4.5); CREATININE 1.15 mg/dL (0.55-1.02); POTASSIUM 4.2 mmol/L (3.5-5.1); TOTAL PROTEIN 8.7 gm/dL (6.4-8.2)
[2020-08-25 15:07] LABS: ALBUMIN 3.9 g/dL (2.9-4.4); ALPHA-1-GLOBULIN 0.3 g/dL (0.0-0.4); BETA GLOBULIN 0.9 g/dL (0.7-1.3); GLOBULIN, TOTAL 4.1 g/dL (2.2-3.9); M-SPIKE 1.4 g/dL (Not Observed)
[2020-08-25 16:09] LABS: FREE KAPPA LIGHT CHAINS 159.7 mg/L (3.3-19.4); FREE LAMBDA LIGHT CHAINS 17.9 mg/L (5.7-26.3); KAPPA/LAMBDA RATIO 8.92 (0.26-1.65)
== END | disposition home or self-care (01) ==
LOC: LAB 01:01
PROVIDERS: ATTEND Internal Medicine Hematology & Oncology
DX: D47.2 Monoclonal gammopathy (principal)

== ENCOUNTER → 2020-10-11 | Outpatient (CLI) | payer OTHER, MEDICARE | END | disposition home or self-care (01) | LOC: RAD 00:29 | PROVIDERS: ATTEND Internal Medicine Hematology & Oncology | DX: D47.2 Monoclonal gammopathy (principal) ==

== ENCOUNTER → 2021-02-07 | Outpatient (CLI) | payer OTHER | END | disposition home or self-care (01) | LOC: COVID19 11:41 | PROVIDERS: ATTEND Physician Assistant | DX: R05 Cough (principal); R53.83 Other fatigue; Z20.822 Contact with and (suspected) exposure to COVID-19 ==

== ENCOUNTER → 2021-04-18 | Outpatient (CLI) | payer MEDICARE ==
[2021-04-18 11:33] LABS: BASO % 0.6 % (0.0-1.0); EOS # 0.1 10*3/uL (0.0-0.4); EOS % 1.7 % (1.0-4.0); HEMATOCRIT 39.9 % (37.0-47.0); LYMPH # 1.7 10*3/uL (1.3-4.4); LYMPH % 37.1 % (27.0-41.0); MEAN CELL VOLUME 94.3 fl (81.0-99.0); MEAN CORPUSCULAR HGB 30.3 pg (27.0-31.0); MEAN CORPUSCULAR HGB CONC 32.1 g/dl (33.0-37.0); MEAN PLATELET VOLUME 10.6 fl (9.6-12.3); MONO # 0.5 10*3/uL (0.1-1.0); MONO % 10.6 % (3.0-9.0); NEUT # 2.3 10*3/uL (2.3-7.9); NEUT % 49.8 % (47.0-73.0); PLATELET COUNT AUTOMATED 169 10*3/uL (130-400); RED BLOOD COUNT 4.23 10*6/uL (4.10-5.10); RED CELL DISTRI WIDTH 11.7 % (0-14.5); WHITE BLOOD COUNT 4.6 10*3/uL (4.8-10.8)
[2021-04-18 12:09] LABS: ALBUMIN 3.1 gm/dl (3.1-4.5); CREATININE 1.34 mg/dL (0.55-1.02); POTASSIUM 4.5 mmol/L (3.5-5.1); TOTAL PROTEIN 8.2 gm/dL (6.4-8.2)
[2021-04-19 04:06] LABS: TOTAL PROTEIN, SERUM 7.9 g/dL (6.0-8.5)
[2021-04-19 15:07] LABS: A/G RATIO 0.9 (0.7-1.7); ALBUMIN 3.7 g/dL (2.9-4.4); ALPHA-1-GLOBULIN 0.3 g/dL (0.0-0.4); ALPHA-2-GLOBULIN 0.8 g/dL (0.4-1.0); BETA GLOBULIN 0.9 g/dL (0.7-1.3); FREE KAPPA LIGHT CHAINS 187.8 mg/L (3.3-19.4); FREE LAMBDA LIGHT CHAINS 21.4 mg/L (5.7-26.3); GAMMA GLOBULIN 2.3 g/dL (0.4-1.8); GLOBULIN, TOTAL 4.2 g/dL (2.2-3.9); KAPPA/LAMBDA RATIO 8.78 (0.26-1.65); M-SPIKE 1.9 g/dL (Not Observed)
== END | disposition home or self-care (01) ==
LOC: LAB 11:17
PROVIDERS: ATTEND Internal Medicine Hematology & Oncology
DX: Z23 Encounter for immunization (principal); D47.2 Monoclonal gammopathy

== ENCOUNTER → 2021-10-24 | Outpatient (CLI) | payer MEDICARE ==
[2021-10-24 15:32] LABS: BASO % 0.6 % (0.0-1.0); EOS # 0.1 10*3/uL (0.0-0.4); EOS % 0.9 % (1.0-4.0); HEMATOCRIT 39.1 % (37.0-47.0); LYMPH % 30.8 % (27.0-41.0); MEAN CELL VOLUME 90.3 fl (81.0-99.0); MEAN CORPUSCULAR HGB 29.3 pg (27.0-31.0); MEAN CORPUSCULAR HGB CONC 32.5 g/dl (33.0-37.0); MEAN PLATELET VOLUME 11.2 fl (9.6-12.3); MONO # 0.5 10*3/uL (0.1-1.0); MONO % 8.5 % (3.0-9.0); NEUT # 3.8 10*3/uL (2.3-7.9); NEUT % 58.9 % (47.0-73.0); PLATELET COUNT AUTOMATED 166 10*3/uL (130-400); RED BLOOD COUNT 4.33 10*6/uL (4.10-5.10); RED CELL DISTRI WIDTH 11.7 % (0-14.5); WHITE BLOOD COUNT 6.4 10*3/uL (4.8-10.8)
[2021-10-24 15:47] LABS: ALBUMIN 3.2 gm/dl (3.1-4.5); CREATININE 1.16 mg/dL (0.55-1.02); POTASSIUM 4.2 mmol/L (3.5-5.1); TOTAL PROTEIN 8.6 gm/dL (6.4-8.2)
[2021-10-25 06:07] LABS: TOTAL PROTEIN, SERUM 7.9 g/dL (6.0-8.5)
[2021-10-25 14:09] LABS: A/G RATIO 0.9 (0.7-1.7); ALBUMIN 3.7 g/dL (2.9-4.4); ALPHA-1-GLOBULIN 0.2 g/dL (0.0-0.4); ALPHA-2-GLOBULIN 0.7 g/dL (0.4-1.0); BETA GLOBULIN 0.8 g/dL (0.7-1.3); GAMMA GLOBULIN 2.4 g/dL (0.4-1.8); GLOBULIN, TOTAL 4.2 g/dL (2.2-3.9)
[2021-10-25 16:07] LABS: FREE KAPPA LIGHT CHAINS 148.1 mg/L (3.3-19.4); FREE LAMBDA LIGHT CHAINS 21.3 mg/L (5.7-26.3); KAPPA/LAMBDA RATIO 6.95 (0.26-1.65)
== END | disposition home or self-care (01) ==
LOC: LAB 14:37
PROVIDERS: ATTEND Internal Medicine Hematology & Oncology
DX: Z23 Encounter for immunization (principal); D47.2 Monoclonal gammopathy

== ENCOUNTER 2022-05-22 09:37 | Inpatient (IN) | payer MEDICARE ==
[~2022-05-22] VITALS: Ht 162.5 cm; Wt 75.8 kg
[2022-05-22 09:54] VITALS: BP 152/67
[2022-05-22] MEDS ORDERED: AMIODARONE HYD200 MG PO (10:41)
[2022-05-22] MEDS ORDERED: IBUPROFEN600 MG PO (10:42)
[2022-05-22 10:51] LABS: BASO % 0.4 % (0.0-1.0); EOS # 0.1 10*3/uL (0.0-0.4); EOS % 0.8 % (1.0-4.0); HEMATOCRIT 36.5 % (37.0-47.0); LYMPH # 1.7 10*3/uL (1.3-4.4); LYMPH % 21.9 % (27.0-41.0); MEAN CELL VOLUME 89.9 fl (81.0-99.0); MEAN CORPUSCULAR HGB CONC 33.4 g/dl (33.0-37.0); MONO # 0.8 10*3/uL (0.1-1.0); MONO % 10.5 % (3.0-9.0); NEUT % 66.3 % (47.0-73.0); PLATELET COUNT AUTOMATED 156 10*3/uL (130-400); RED BLOOD COUNT 4.06 10*6/uL (4.10-5.10); WHITE BLOOD COUNT 7.5 10*3/uL (4.8-10.8)
[2022-05-22 11:02] LABS: ACT PARTIAL THROMBO TIME 27.4 SECONDS (20.0-32.1)
[2022-05-22 11:07] LABS: ALKALINE PHOSPHATASE 91 U/L (45-117); BUN 12 mg/dl (7-24); CHLORIDE 108 mmol/L (98-107); CREATININE 1.24 mg/dL (0.55-1.02); POTASSIUM 4.4 mmol/L (3.5-5.1); SGOT/AST 26 IU/L (3-35); SGPT/ALT 27 U/L (12-78); SODIUM 135 mmol/L (136-145); TOTAL PROTEIN 8.2 gm/dL (6.4-8.2)
[2022-05-22 14:17] VITALS: BP 142/63
[2022-05-22 14:31] VITALS: BP 151/68
[2022-05-22] MEDS ORDERED: AMIODARONE HCL100 M1 PO (16:15)
[2022-05-22 20:00] VITALS: BP 76/44
[2022-05-22 20:30] VITALS: BP 82/50
[2022-05-23] VITALS: BP 96/54
[2022-05-23 05:56] LABS: CREATININE 1.37 mg/dL (0.55-1.02); POTASSIUM 4.1 mmol/L (3.5-5.1)
[2022-05-23 06:10] LABS: BASO % 0.5 % (0.0-1.0); EOS # 0.1 10*3/uL (0.0-0.4); HEMATOCRIT 32.2 % (37.0-47.0); LYMPH # 2.1 10*3/uL (1.3-4.4); LYMPH % 36.5 % (27.0-41.0); MEAN CELL VOLUME 90.4 fl (81.0-99.0); MEAN CORPUSCULAR HGB 30.3 pg (27.0-31.0); MEAN CORPUSCULAR HGB CONC 33.5 g/dl (33.0-37.0); MEAN PLATELET VOLUME 11.8 fl (9.6-12.3); MONO # 0.7 10*3/uL (0.1-1.0); MONO % 12.1 % (3.0-9.0); NEUT # 2.9 10*3/uL (2.3-7.9); NEUT % 49.7 % (47.0-73.0); PLATELET COUNT AUTOMATED 130 10*3/uL (130-400); RED BLOOD COUNT 3.56 10*6/uL (4.10-5.10); RED CELL DISTRI WIDTH 11.1 % (0-14.5); WHITE BLOOD COUNT 5.9 10*3/uL (4.8-10.8)
[2022-05-23 08:00] VITALS: BP 122/72
[2022-05-23 12:00] VITALS: BP 103/59
[2022-05-23] MEDS ORDERED: AMOX-CLAV 875-1 EACH PO ×2 (12:49)
== END 2022-05-23 14:38 | disposition home or self-care (01) | DRG 602 ==
LOC: ED 09:37 → 4E 10:27 → EDHOLD 10:27 → 4E 13:39
PROVIDERS: Emergency Medicine; Family Medicine; ADMIT Internal Medicine; ATTEND Internal Medicine
DX: L03.114 Cellulitis of left upper limb (principal); N17.0 Acute kidney failure with tubular necrosis; E44.1 Mild protein-calorie malnutrition; E87.1 Hypo-osmolality and hyponatremia; S61.452A Open bite of left hand, initial encounter; N18.31 Chronic kidney disease, stage 3a; K21.9 Gastro-esophageal reflux disease without esophagitis; G62.9 Polyneuropathy, unspecified; I48.0 Paroxysmal atrial fibrillation; R70.0 Elevated erythrocyte sedimentation rate; E87.8 Other disorders of electrolyte and fluid balance, not elsewhere classified; R73.9 Hyperglycemia, unspecified; M79.7 Fibromyalgia; R25.1 Tremor, unspecified; W55.01XA Bitten by cat, initial encounter; Z90.49 Acquired absence of other specified parts of digestive tract; Z95.2 Presence of prosthetic heart valve; Z90.710 Acquired absence of both cervix and uterus; Z87.891 Personal history of nicotine dependence; Z82.49 Family history of ischemic heart disease and other diseases of the circulatory system; Z82.3 Family history of stroke; Z85.41 Personal history of malignant neoplasm of cervix uteri; Y93.89 Activity, other specified; Y92.89 Other specified places as the place of occurrence of the external cause; Y99.8 Other external cause status; Z68.28 Body mass index [BMI] 28.0-28.9, adult

== ENCOUNTER 2022-05-25 14:02 | Emergency (ER) | payer MEDICARE ==
[~2022-05-25] VITALS: Ht 162.5 cm; Wt 75.7 kg
[~2022-05-25 14:02] MED LIST changes: +AMIODARONE HCL100 M1 PO; +AMIODARONE HYD200 MG PO; +AMOX-CLAV 875-1 EACH PO; +IBUPROFEN600 MG PO
== END 2022-05-25 15:51 | disposition home or self-care (01) ==
LOC: ED 14:02
DX: Z23 Encounter for immunization (principal); Z79.899 Other long term (current) drug therapy; Z90.49 Acquired absence of other specified parts of digestive tract; Z90.710 Acquired absence of both cervix and uterus; Z98.890 Other specified postprocedural states

== ENCOUNTER 2022-05-29 10:22 | Emergency (ER) | payer MEDICARE ==
[~2022-05-29] VITALS: Wt 75.7 kg
== END 2022-05-29 11:36 | disposition home or self-care (01) ==
LOC: ED 10:22
DX: Z23 Encounter for immunization (principal); Z79.899 Other long term (current) drug therapy; Z90.49 Acquired absence of other specified parts of digestive tract; Z90.710 Acquired absence of both cervix and uterus; Z98.890 Other specified postprocedural states; Z87.891 Personal history of nicotine dependence

== ENCOUNTER 2022-06-05 11:57 | Emergency (ER) | payer MEDICARE ==
[~2022-06-05] VITALS: Ht 165.1 cm; Wt 72.6 kg
== END 2022-06-05 13:26 | disposition home or self-care (01) ==
LOC: ED 11:57
DX: Z23 Encounter for immunization (principal); Z79.899 Other long term (current) drug therapy; Z90.710 Acquired absence of both cervix and uterus; Z98.890 Other specified postprocedural states; Z90.49 Acquired absence of other specified parts of digestive tract; Z87.891 Personal history of nicotine dependence

== ENCOUNTER 2023-04-13 12:58 | Emergency (ER) | payer MEDICARE ==
[~2023-04-13] VITALS: Ht 162.5 cm; Wt 68.0 kg
== END 2023-04-13 15:53 | disposition home or self-care (01) ==
LOC: ED 12:58
DX: B34.9 Viral infection, unspecified (principal); K21.9 Gastro-esophageal reflux disease without esophagitis; F41.9 Anxiety disorder, unspecified; I10 Essential (primary) hypertension; M79.7 Fibromyalgia; Z90.49 Acquired absence of other specified parts of digestive tract; Z90.710 Acquired absence of both cervix and uterus; Z98.890 Other specified postprocedural states; Z20.822 Contact with and (suspected) exposure to COVID-19

== ENCOUNTER → 2023-12-01 | Outpatient (CLI) | payer MEDICARE | END | disposition home or self-care (01) | LOC: RAD 00:32 | PROVIDERS: ATTEND Physician Assistant | DX: Z23 Encounter for immunization (principal); D47.2 Monoclonal gammopathy; C90.00 Multiple myeloma not having achieved remission; N95.9 Unspecified menopausal and perimenopausal disorder; M81.0 Age-related osteoporosis without current pathological fracture; Z90.710 Acquired absence of both cervix and uterus ==

== ENCOUNTER 2024-05-03 16:48 | Emergency (ER) | payer MEDICARE ==
[~2024-05-03] VITALS: Ht 162.5 cm; Wt 72.6 kg
[2024-05-03] MEDS ORDERED: IBUPROFEN 800 MG TAB PO ONE (17:10)
== END 2024-05-03 17:57 | disposition home or self-care (01) ==
LOC: ED 16:48
DX: S92.515A Nondisplaced fracture of proximal phalanx of left lesser toe(s), initial encounter for closed fracture (principal); S90.122A Contusion of left lesser toe(s) without damage to nail, initial encounter; K21.9 Gastro-esophageal reflux disease without esophagitis; F41.9 Anxiety disorder, unspecified; I10 Essential (primary) hypertension; M79.7 Fibromyalgia; Z90.710 Acquired absence of both cervix and uterus; Z98.890 Other specified postprocedural states; Z90.49 Acquired absence of other specified parts of digestive tract; W22.8XXA Striking against or struck by other objects, initial encounter; Y93.89 Activity, other specified; Y92.009 Unspecified place in unspecified non-institutional (private) residence as the place of occurrence of the external cause; Y99.8 Other external cause status

== ENCOUNTER 2024-05-26 10:02 | Emergency (ER) | payer MEDICARE, MEDICAID ==
[~2024-05-26] VITALS: Ht 160 cm; Wt 63.5 kg
[2024-05-26 12:10] LABS: BASO % 0.5 % (0.0-1.0); EOS # 0.1 10*3/uL (0.0-0.4); EOS % 1.1 % (1.0-4.0); HEMATOCRIT 33.6 % (37.0-47.0); LYMPH # 1.8 10*3/uL (1.3-4.4); MEAN CELL VOLUME 95.2 fl (81.0-99.0); MEAN CORPUSCULAR HGB 30.6 pg (27.0-31.0); MEAN CORPUSCULAR HGB CONC 32.1 g/dl (33.0-37.0); MEAN PLATELET VOLUME 10.7 fl (9.6-12.3); MONO # 0.4 10*3/uL (0.1-1.0); NEUT % 46.2 % (47.0-73.0); PLATELET COUNT AUTOMATED 134 10*3/uL (130-400); RED BLOOD COUNT 3.53 10*6/uL (4.10-5.10); RED CELL DISTRI WIDTH 11.4 % (0-14.5); WHITE BLOOD COUNT 4.4 10*3/uL (4.8-10.8)
[2024-05-26 12:19] LABS: ACT PARTIAL THROMBO TIME 27.3 SECONDS (20.0-32.1)
[2024-05-26 12:29] LABS: TOTAL PROTEIN 8.6 gm/dL (6.0-8.0)
[2024-05-26 12:50] LABS: POTASSIUM 4.6 mmol/L (3.4-5.1)
== END 2024-05-26 14:30 | disposition home or self-care (01) ==
LOC: ED 10:02
PROVIDERS: Internal Medicine
DX: R79.89 Other specified abnormal findings of blood chemistry (principal); R00.2 Palpitations; R07.89 Other chest pain; I12.9 Hypertensive chronic kidney disease with stage 1 through stage 4 chronic kidney disease, or unspecified chronic kidney disease; N18.9 Chronic kidney disease, unspecified; R42 Dizziness and giddiness; I48.91 Unspecified atrial fibrillation; K21.9 Gastro-esophageal reflux disease without esophagitis; F17.200 Nicotine dependence, unspecified, uncomplicated; Z79.899 Other long term (current) drug therapy; Z90.49 Acquired absence of other specified parts of digestive tract; Z90.710 Acquired absence of both cervix and uterus

== ENCOUNTER → 2024-07-06 | Outpatient (CLI) | payer MEDICARE, MEDICAID | END | disposition home or self-care (01) | LOC: US 06-21 12:30 | PROVIDERS: ATTEND Internal Medicine Nephrology | DX: N28.1 Cyst of kidney, acquired (principal); N18.32 Chronic kidney disease, stage 3b ==

== ENCOUNTER → 2024-07-20 | Outpatient (CLI) | payer MEDICARE, MEDICAID ==
[2024-07-20 13:46] LABS: BASO % 0.7 % (0.0-1.0); BILIRUBIN Negative (Negative); BLOOD Negative (Negative); CLARITY Clear (Clear); COLOR Yellow (Yellow); EOS % 0.2 % (1.0-4.0); GLUCOSE Negative (Negative); HEMATOCRIT 34.5 % (37.0-47.0); KETONE Negative (Negative); LEUKO ESTERASE 1+ (Negative); LYMPH # 1.9 10*3/uL (1.3-4.4); LYMPH % 43.1 % (27.0-41.0); MEAN CELL VOLUME 90.8 fl (81.0-99.0); MEAN CORPUSCULAR HGB 31.3 pg (27.0-31.0); MEAN CORPUSCULAR HGB CONC 34.5 g/dl (33.0-37.0); MEAN PLATELET VOLUME 10.4 fl (9.6-12.3); MONO # 0.5 10*3/uL (0.1-1.0); MONO % 11.6 % (3.0-9.0); NEUT % 44.2 % (47.0-73.0); NITRITE Negative (Negative); PLATELET COUNT AUTOMATED 157 10*3/uL (130-400); RED CELL DISTRI WIDTH 11.9 % (0-14.5); SPECIFIC GRAVITY 1.015 (1.001-1.030); WHITE BLOOD COUNT 4.5 10*3/uL (4.8-10.8)
[2024-07-20 13:58] LABS: URINE CREATININE RANDOM 113.49 mg/dL
[2024-07-20 14:01] LABS: BACTERIA 1+; EPITHELIAL CELLS 16-20; MUCOUS 1+; RBC 0-2 rbc/hpf (0-2)
[2024-07-20 14:18] LABS: POTASSIUM 4.6 mmol/L (3.4-5.1)
[2024-07-20 14:40] LABS: VITAMIN D, 25-HYDROXY 51.6 ng/mL (30-100)
== END | disposition home or self-care (01) ==
LOC: LAB 13:11
PROVIDERS: Internal Medicine Nephrology; ATTEND Internal Medicine Hematology & Oncology
DX: Z23 Encounter for immunization (principal); D47.2 Monoclonal gammopathy; C90.00 Multiple myeloma not having achieved remission; M81.0 Age-related osteoporosis without current pathological fracture

== ENCOUNTER 2025-05-20 12:59 | Emergency (ER) | payer MEDICARE ==
[~2025-05-20] VITALS: Ht 160 cm; Wt 63.5 kg
[2025-05-20 13:23] LABS: MEAN CELL VOLUME 94.0 fl (81.0-99.0); MEAN CORPUSCULAR HGB 33.3 pg (27.0-31.0); MEAN PLATELET VOLUME 11.4 fl (9.6-12.3); NUCLEATED RED BLOOD CELL 0.0 % (0.0-0.0); NUCLEATED RED BLOOD CELL 0.0 10*3/uL (0.0-0.0); PLATELET COUNT AUTOMATED 129 10*3/uL (130-400); RED CELL DISTRI WIDTH 13.1 % (0-14.5)
[2025-05-20 13:42] LABS: BUN 29.0 mg/dl (9-23)
[2025-05-20 13:45] LABS: MANUAL DIFF REFLEX YES
[2025-05-20 13:50] LABS: PLATELET SUFFICIENCY LOW (NORMAL)
[2025-05-20] MEDS ORDERED: ACETAMINOPHEN 325 MG TAB PO ONE (14:10)
[2025-05-20] MEDS ORDERED: POTASSIUM CHLORIDE 20 MEQ TAB PO ONE (14:10)
[2025-05-20] MEDS ORDERED: ACETAMINOPHEN 325 MG TAB ONE (14:38)
[2025-05-20] MEDS ORDERED: POTASSIUM CHLORIDE 20 MEQ TAB ONE (14:38)
[2025-05-20] MEDS ORDERED: Ondansetron Hydrochloride 4 MG/2 ML VIAL IV ONE (14:45)
[2025-05-20] MEDS ORDERED: SODIUM CHLORIDE 0.9% 1,000 ML IV ONE ×2 (14:45→15:17)
== END 2025-05-20 15:26 | disposition short-term general hospital (02) ==
LOC: ED 12:59
PROVIDERS: Emergency Medicine
DX: I21.4 Non-ST elevation (NSTEMI) myocardial infarction (principal); R11.2 Nausea with vomiting, unspecified; I35.0 Nonrheumatic aortic (valve) stenosis; N17.9 Acute kidney failure, unspecified; E87.6 Hypokalemia; I12.9 Hypertensive chronic kidney disease with stage 1 through stage 4 chronic kidney disease, or unspecified chronic kidney disease; N18.9 Chronic kidney disease, unspecified; M79.7 Fibromyalgia; I48.91 Unspecified atrial fibrillation; Z79.899 Other long term (current) drug therapy; Z90.711 Acquired absence of uterus with remaining cervical stump; Z90.49 Acquired absence of other specified parts of digestive tract

== ENCOUNTER 2025-08-11 17:04 | Emergency (ER) | payer MEDICARE ==
[~2025-08-11] VITALS: Ht 162.5 cm; Wt 63.5 kg
[2025-08-11] MEDS ORDERED: Acetaminophen/Oxycodone 5 MG/325 MG TABLET PO ONE (17:30)
[2025-08-11] MEDS ORDERED: Dexamethasone Sodium Phospha 20 MG/5 ML VIAL IM ONE (17:30)
[2025-08-11] MEDS ORDERED: METHOCARBAMOL 750 MG TAB PO ONE (17:30)
[2025-08-11] MEDS ORDERED: METHOCARBAMOL1000 MG PO (19:48)
== END 2025-08-11 20:00 | disposition home or self-care (01) ==
LOC: ED 17:04
DX: M25.552 Pain in left hip (principal); M79.652 Pain in left thigh; Z79.899 Other long term (current) drug therapy; Z90.710 Acquired absence of both cervix and uterus; Z90.49 Acquired absence of other specified parts of digestive tract; Z87.891 Personal history of nicotine dependence; W18.39XA Other fall on same level, initial encounter; Y93.89 Activity, other specified; Y92.89 Other specified places as the place of occurrence of the external cause; Y99.8 Other external cause status